=== PATIENT | female | born 1965 | race Caucasian/White ===

== ENCOUNTER 2022-04-29 13:15 | Emergency (ER) | payer SELFPAY ==
[2022-04-29 13:36] VITALS: BP 144/94; PULSE 89; RESP 16; TEMP 97.8; BMI 22.6
[2022-04-29] MEDS ORDERED: ACETAMINOPHEN 325 MG TABLET (FP) PO ONE (13:58)
[2022-04-29] MEDS ORDERED: LIDOCAINE 5% TOPICAL PATCH TP ONE (13:58)
[2022-04-29] MEDS ORDERED: ACETAMINOPHEN 325 MG TABLET (FP) ONE (13:59)
[2022-04-29 14:53] LABS: EPITHELIAL CELLS FEW /hpf
[2022-04-29] MEDS ORDERED: LIDOCAINE PATCH REMOVAL MC SCH (22:00)
== END 2022-04-29 16:11 | disposition home or self-care (01) ==
LOC: FER 13:15
DX: M54.50 Low back pain, unspecified (principal)
CPT/HCPCS: 71045-TC-FY; 81003; 81015; 87086; 99284-25